=== PATIENT | female | born 1945 ===

== ENCOUNTER 2018-06-08 14:16 | Inpatient (IN) | payer MEDICARE, OTHER ==
[~2018-06-08] VITALS: Ht 502.6 cm; Wt 48.2 kg
[~2018-06-08 14:16] MED LIST: NO HOME MEDS
[2018-06-08 14:47] LABS: BASOPHILS % (AUTO) 0.2 % (0-1); EOSINOPHILS # (AUTO) 0.2 X10'3 (0-0.9); EOSINOPHILS % (AUTO) 1.6 % (0-6); HEMATOCRIT 39.8 % (35.0-45.0); HEMOGLOBIN 13.8 g/dl (12.0-16.0); LYMPHOCYTES # (AUTO) 1.4 X10'3 (1.1-4.8); LYMPHOCYTES % (AUTO) 12.4 % (21-51); MEAN CORPUSCULAR HEMOGLOBIN 33.1 PG (27.0-31.0); MEAN CORPUSCULAR HGB CONC 34.6 % (33.0-36.5); MEAN CORPUSCULAR VOLUME 95.7 FL (78-98); MEAN PLATELET VOLUME 8.4 FL (7.4-10.4); MONOCYTES # (AUTO) 0.1 X10'3 (0-0.9); MONOCYTES % (AUTO) 0.8 % (2-12); NEUTROPHILS # (AUTO) 9.4 X10'3 (1.8-7.7); PLATELET COUNT 230 X10'3 (140-440); RED BLOOD COUNT 4.16 X10'6 (4.20-5.60); RED CELL DISTRIBUTION WIDTH 13.4 % (11.5-14.5); WHITE BLOOD COUNT 11.1 X10'3 (4.5-11.0)
[2018-06-08] MEDS ORDERED: morphine 4 MG/ML inj SYRINge IV PRN (14:50)
[2018-06-08] MEDS ORDERED: ondansetron/PF 4mg/2ml inj IV ONE (14:50)
[2018-06-08] MEDS ORDERED: normal saline 1000ML IV soln IVB ONE ×2 (14:50→17:10)
[2018-06-08 14:52] LABS: PROTHROMBIN TIME 10.1 SECONDS (9.0-12.0)
[2018-06-08 14:57] LABS: ALANINE AMINOTRANSFERASE 20 U/L (12-78); ALBUMIN 3.6 G/DL (3.4-5.0); ALKALINE PHOSPHATASE 161 IU/L (46-116); ANION GAP 10 (8-16); ASPARTATE AMINO TRANSFERASE 27 U/L (10-37); BILIRUBIN,TOTAL 0.4 MG/DL (0.1-1.0); BLOOD UREA NITROGEN 9 MG/DL (7-18); BUN/CREATININE RATIO 13.4 (6.6-38.0); CALCIUM 8.6 MG/DL (8.5-10.1); CHLORIDE 96 MMOL/L (99-107); CREATININE 0.67 MG/DL (0.40-0.90); GLUCOSE 103 MG/DL (70-104); POTASSIUM 3.9 MMOL/L (3.5-5.1); SODIUM 133 MMOL/L (135-145); TOTAL CARBON DIOXIDE 27.2 MMOL/L (24-32); TOTAL PROTEIN 7.1 G/DL (6.4-8.2); eGFR 87 ML/MIN
[2018-06-08 15:08] LABS: LIPASE 101 U/L (73-393)
[2018-06-08 15:32] LABS: TROPONIN I 0.13 NG/ML (0.0-0.05)
[2018-06-08] MEDS ORDERED: iohexol 300mg/ml 100ml inj. ONE (15:39)
[2018-06-08] MEDS ORDERED: aspirin 81mg tab.chew PO ONE (15:40)
[2018-06-08 15:56] LABS: D-DIMER 0.51 MG/L FEU (0-0.50)
[2018-06-08] MEDS ORDERED: enoxaparin 100mg/ml syringe SUBCUT ONE (16:45)
[2018-06-08] MEDS ORDERED: enoxaparin 60mg/0.6ml syringe SUBCUT ONE (16:55)
[2018-06-08] MEDS ORDERED: iohexol 350MG/ML 100ml bottle IV ONE (17:11)
[2018-06-08 17:18] LABS: CLARITY,URINE CLEAR (Clear); COLOR,URINE STRAW (Yellow); GLUCOSE, URINE NEGATIVE (Neg); KETONES,URINE NEGATIVE (Neg); LEUKOCYTE ESTERASE ,URINE NEGATIVE (Neg); NITRITES, URINE NEGATIVE (Neg); OCCULT BLOOD,URINE NEGATIVE (Neg); PH,URINE 7.5 (4.8-8.0); PROTEIN,URINE NEGATIVE (Neg); UA COLLECTION TYPE CLN CATCH MIDSTREAM; UROBILINOGEN,URINE 0.2 E.U/dL (0.2-1.0)
[2018-06-08] MEDS ORDERED: piperacillin/tazo 3.375gm/50ml 50 ML IV ONE (17:25)
[2018-06-08] MEDS ORDERED: normal saline 1000ml 1,000 ML IV SCH (18:06)
[2018-06-08] MEDS ORDERED: mag hydrox/Alum hydrox/simeth 30ml oral suspension PO PRN (18:10)
[2018-06-08] MEDS ORDERED: ondansetron/PF 4mg/2ml inj IV PRN (18:10)
[2018-06-08] MEDS ORDERED: acetaminophen 325mg tablet PO PRN (18:10)
[2018-06-08] MEDS ORDERED: magnesium hydroxide 30ml (MOM) UD suspension PO PRN (18:10)
[2018-06-08] MEDS ORDERED: piperacillin/tazo 3.375gm/50ml 50 ML IV SCH (20:00)
[2018-06-08 20:19] VITALS: BP 137/71
== END 2018-06-08 20:22 | disposition left against medical advice (07) | DRG 444 ==
LOC: ER 14:16 → ED HOLD 18:06
PROVIDERS: ADMIT Family Medicine; ATTEND Family Medicine
PROC: BW211ZZ Computerized Tomography (CT Scan) of Abdomen and Pelvis using Low Osmolar Contrast (ICD-10-PCS; principal; 2018-06-08)
PROC: B32T1ZZ Computerized Tomography (CT Scan) of Left Pulmonary Artery using Low Osmolar Contrast (ICD-10-PCS; 2018-06-08)
PROC: B3201ZZ Computerized Tomography (CT Scan) of Thoracic Aorta using Low Osmolar Contrast (ICD-10-PCS; 2018-06-08)
PROC: B32S1ZZ Computerized Tomography (CT Scan) of Right Pulmonary Artery using Low Osmolar Contrast (ICD-10-PCS; 2018-06-08)
DX: K81.0 Acute cholecystitis (principal); I21.4 Non-ST elevation (NSTEMI) myocardial infarction; I10 Essential (primary) hypertension; K20.9 Esophagitis, unspecified; Z53.21 Procedure and treatment not carried out due to patient leaving prior to being seen by health care provider; K52.9 Noninfective gastroenteritis and colitis, unspecified; Z87.01 Personal history of pneumonia (recurrent)
CPT/HCPCS: 36415; 71275; 74177; 80053; 81003; 83605; 83690; 84484; 85025; 85379; 85610; 87040; 93005; 96360; 99291; J2405; J2543; J7030; Q9967

== ENCOUNTER 2024-11-07 14:00 | Emergency (ER) | payer MEDICARE ==
[~2024-11-07] VITALS: Ht 149.9 cm; Wt 50.0 kg
[2024-11-07 14:13] VITALS: BP 164/65; PULSE 87; O2SAT 97
[2024-11-07 14:52] VITALS: RESP 16
[2024-11-07] MEDS ORDERED: AZIT250T PO (16:13)
[2024-11-07] MEDS ORDERED: PROM25TA14 PO (16:13)
[2024-11-07] MEDS ORDERED: ACET1TAB96 PO (16:13)
[2024-11-07] MEDS: proMETHazine 25mg tablet PO ONE (16:33)
[2024-11-07 17:00] VITALS: TEMP 97.8
== END 2024-11-07 17:02 | disposition home or self-care (01) ==
LOC: ER 14:00
DX: J20.9 Acute bronchitis, unspecified (principal)
CPT/HCPCS: 71045; 99283; Q0169